=== PATIENT | male | born 1985 | race Caucasian/White ===

== ENCOUNTER 2016-06-12 05:32 | Observation (INO) | payer BC ==
[2016-06-12 05:57] LABS: HEMOGLOBIN 16.9 gm/dl (14.0-17.5); RED BLOOD COUNT 5.6 M/UL (4.20-5.50); WHITE BLOOD COUNT 14.2 K/UL (4.5-11.0)
[2016-06-12 06:21] LABS: BUN/CREATININE RATIO 17 (0-10)
[2016-06-12] MEDS ORDERED: NOVOLOG 10100 UNITS/ SQ (10:51)
[2016-06-12] MEDS ORDERED: LANTUS100 UNIT/1 SQ (10:52)
[2016-06-12] MEDS ORDERED: HYDROCHLOROTHIA25 MG PO (11:05)
[2016-06-12] MEDS ORDERED: ARMOUR THYROID15 MG PO (11:05)
[2016-06-13 06:30] LABS: HEMOGLOBIN 15.4 gm/dl (14.0-17.5); RED BLOOD COUNT 5.17 M/UL (4.20-5.50)
[2016-06-13 06:32] LABS: WHITE BLOOD COUNT 7.4 K/UL (4.5-11.0)
[2016-06-13 06:46] LABS: BUN/CREATININE RATIO 11 (0-10)
== END 2016-06-13 17:16 | disposition home or self-care (01) ==
LOC: ER1 05:32 → ZEROF 08:43 → MED SURG 4 13:03
PROVIDERS: Physician Assistant Medical; Student in an Organized Health Care Education/Training Program; ADMIT Family Medicine
DX: E10.649 Type 1 diabetes mellitus with hypoglycemia without coma (principal); M62.82 Rhabdomyolysis; I10 Essential (primary) hypertension; R94.6 Abnormal results of thyroid function studies; E03.9 Hypothyroidism, unspecified; G47.33 Obstructive sleep apnea (adult) (pediatric); Z79.4 Long term (current) use of insulin; Z79.899 Other long term (current) drug therapy
CPT/HCPCS: 36415; 71010; 80048; 80053; 80307; 81001; 82550; 82553; 82962; 83735; 83874; 84443; 84484; 85025; 93005; 99285; G0378; G0480; J7030